=== PATIENT | male | born 1985 | race African-American/Black ===

== ENCOUNTER 2022-02-01 23:25 | Emergency (ER) | payer MEDICAID ==
[~2022-02-01] VITALS: Ht 182.9 cm; Wt 91.1 kg
[2022-02-01 23:36] VITALS: BP 136/101
== END 2022-02-02 00:24 | disposition left against medical advice (07) ==
LOC: ER 23:25
DX: Z53.21 Procedure and treatment not carried out due to patient leaving prior to being seen by health care provider (principal); F41.9 Anxiety disorder, unspecified; E78.00 Pure hypercholesterolemia, unspecified; I10 Essential (primary) hypertension; G47.00 Insomnia, unspecified; Z98.890 Other specified postprocedural states